=== PATIENT | female | born 1945 | race Caucasian/White ===

== ENCOUNTER 2021-08-11 14:54 | Outpatient (CLI) | payer MEDICARE, BC, SELFPAY ==
[2021-08-11 15:29] VITALS: BP 123/72; PULSE 68; RESP 20; O2SAT 96
--- NOTE | 2021-08-11 15:30 | DI.RAD_ITS ---
Exam(s) XR PAIN CLINIC LUMBAR SP 2V EXAM: XR PAIN CLINIC LUMBAR SP 2V CLINICAL HISTORY: dx: Lumbar spondylosis. TECHNIQUE: Fluoroscopy was provided for the referring physician for guidance with performing pain cl inic injection procedure. COMPARISON: No exams were available for comparison FINDINGS: Please see procedure note for details. Fluoro time: 40.9 seconds RADIATION DOSE DELIVERED: Javierr= 7.13 mGy
[2021-08-11] MEDS: Bupivacaine 0.5% Pres-Free 10 ML VIAL IJ (16:12)
[2021-08-11 16:30] VITALS: BP 141/68; PULSE 79; RESP 19; O2SAT 96
--- NOTE | 2021-08-17 05:54 | PDOC.PAIN_ITS ---
Pain Clinic Procedure Note Procedure Note Procedure Note: Lumbar/Sacral Medial Branch Blocks MICHAEL REYNOSO has been referred to the [facility] for lumbar/sacral medial branch blocks. COMMENTS: She was previously evaluated in our clinic. No contrast is being used secondary to an international shortage. Her pre-procedure pain VAS level to the low back was 9/10. Patient was interviewed and the medical record reviewed. There were no medical, pharmacologic, radiographic or other structural contraindications to attempting fluoroscopically guided local anesthetic lumbar/sacral medial branch blocks. Risks and expected side effects as well as potential benefit of the procedure we re reviewed and voiced concerns addressed. The printed consent form was signed and witnessed. Standard time-out procedure was performed. Patient was placed in the prone position on the fluoroscopy table and automated blood pressure cuff and pulse oximeter applied. The skin entry points for approaching the anatomic target points of the segmental medial branches of bilateral T11-L1 were identified with anfluoroscopy and marked. Following thorough Chlorhexadine preparation of the skin and draping and 1% lidocaine infiltration of the skin entry points and subcutaneous tissues, a 25 gauge 3.5 spinal needle was placed under fluoroscopic guidance down on to the target point for each respective segmental medial branch.Position was confirmed in A/P, oblique and lateral views. At this point I injected 0.5ml of 0.5% Bupivacaine at each segmental sensory nerve. Vital signs were stable throughout the procedure and were as recorded in the docflowsheet by the nursing staff. Follow up plans and appointments were discussed and was instructed to keep careful note of how the usual pain was modified by these injections. Specifically was asked to keep a pain diary for the next 24 hours using a numeric pain scale of 0-10 and report these results at the follow-up visit. Post procedure instruction was given as documented in the nursing documentation and having met discharge criteria. Patient was discharged from the [facility]. Based on the medial branches blocked today, if the patient has adequate relief and we are able to proceed to radiofrequency ablation, the treatment should result in the denervation of the bilateral T12-L1 and L1-L2 FACET JOINTS. We would expect to denervate a total of 4 facets during the radiofrequency ablation. COMMENTS: Post-procedure pain VAS was 0/10. Adolfo Mahoney DO, MPH [facility]-Pain Management [facility] CC: Isabella Horowitz
== END 2021-08-11 14:55 | disposition home or self-care (01) ==
LOC: PC 14:55
PROVIDERS: PCP Internal Medicine; Visit Provider Preventive Medicine Occupational Medicine
DX: M47.815 Spondylosis without myelopathy or radiculopathy, thoracolumbar region (principal)
CPT/HCPCS: 64493; 64494; 72100

== ENCOUNTER 2021-11-03 14:14 | Outpatient (CLI) | payer MEDICARE, BC, SELFPAY ==
--- NOTE | 2021-11-03 06:00 | DI.RAD_ITS ---
Exam(s) XR PAIN CLINIC LUMBAR SP 2V EXAM: XR PAIN CLINIC LUMBAR SP 2V CLINICAL HISTORY: Dx: Lumbar Spondylosis. TECHNIQUE: Fluoroscopy was provided for the referring physician for guidance with performing pain cl inic injection procedure. COMPARISON: No exams were available for comparison FINDINGS: Please see procedure note for details. Fluoro time 67.8 RADIATION DOSE DELIVERED: vic Herrera=13.12 mGy
[2021-11-03 14:23] VITALS: BP 147/80; PULSE 67; RESP 18; TEMP 36.7; O2SAT 97
--- NOTE | 2021-11-03 15:07 | PDOC.PAIN ---
Pain Clinic Procedure Note Procedure Note Procedure Note: Lumbar/Sacral Medial Branch Blocks Nelly Love has been referred to the [facility] for lumbar/sacral medial branch blocks. COMMENTS: She did very well with her first blocks. Pre-procedure pain VAS was 6/10. Dx: Lumbosacral spondylosis without myelopathy Patient was interviewed and the medical record reviewed. There were no medical, pharmacologic, radiographic or other structural contraindications to attempting fluoroscopically guided local anesthetic lumbar/sacral medial branch blocks. Risks and expected side effects as well as potential benefit of the procedure were reviewed and voiced concerns addressed. The printed consent form was signed and witnessed. Standard time-out procedure was performed. Patient was placed in the prone position on the fluoroscopy table and automated blood pressure cuff and pulse oximeter applied. The skin entry points for approaching the anatomic target points of the segmental medial branches of bilateral T11, T12 and L1 were identified with anfluoroscopy and marked. Following thorough Chlorhexadine preparation of the skin, a 25 gauge 3.5 spinal needle was placed under fluoroscopic guidance down on to the target point for each respective segmental medial branch.Position was confirmed in A/P, oblique and lateral views with 0.25ml of omnipaque 240. CAt this point 0.5ml of 2% Lidocaine was injected at each segmental sensory nerve. Vital signs were stable throughout the procedure and were as recorded in the docflowsheet by the nursing staff. Follow up plans and appointments were discussed and was instructed to keep careful note of how the usual pain was modified by these injections. Specifically was asked to keep a pain diary for the next 24 hours using a numeric pain scale of 0-10 and report these results at the follow-up visit. Post procedure instruction was given as documented in the nursing documentation and having met discharge criteria. Patient was discharged from the [facility]. Based on the medial branches blocked today, if the patient has adequate relief and we are able to proceed to radiofrequency ablation, the treatment should result in the denervation of the bilateral T12-L1 and L1-L2 FACET JOINTS. We would expect to denervate a total of 4 facets during the radiofrequency ablation. COMMENTS: Post-procedure pain VAS was 0/10. Adolfo Mahoney DO, MPH [facility]-Pain Management [facility] CC: Isabella Horowitz
[2021-11-03] MEDS: Lidocaine 2% Pres-Free 5 ML VIAL IJ (15:19)
[2021-11-03] MEDS: Omnipaque 240 MG/ML 50 ML BTL IJ (15:20)
== END 2021-11-03 14:15 | disposition home or self-care (01) ==
LOC: PC 14:16
PROVIDERS: PCP Internal Medicine; Visit Provider Preventive Medicine Occupational Medicine
DX: M47.817 Spondylosis without myelopathy or radiculopathy, lumbosacral region (principal); M54.50 Low back pain, unspecified
CPT/HCPCS: 64493; 64494; 72100; Q9967

== ENCOUNTER 2022-02-10 11:04 | Outpatient (CLI) | payer MEDICARE, BC, SELFPAY ==
[2022-02-10 11:22] VITALS: BP 155/79; PULSE 60; RESP 20; TEMP 36.8; O2SAT 98
[2022-02-10] MEDS: fentaNYL 100 MCG/2 ML VIAL IVP (12:11)
[2022-02-10] MEDS: Midazolam 2 MG/2 ML VIAL IVP (12:21)
[2022-02-10] MEDS: Lactated Ringers 500 ML 80 ML IV (12:48)
[2022-02-10 12:50] VITALS: BP 171/87; PULSE 71; RESP 17; O2SAT 100
--- NOTE | 2022-02-10 12:50 | DI.RAD_ITS ---
Exam(s) XR PAIN CLINIC LUMBAR SP 2V EXAM: XR PAIN CLINIC LUMBAR SP 2V CLINICAL HISTORY: Dx: Lumbar Spondylosis TECHNIQUE: 2D and realtime digital imaging was performed. CONTRAST MATERIAL: Refer to procedure report. COMPARISON: No exams were available for comparison FINDINGS: Fluoroscopy was provided for Dr. Mahoney during the performance of a lumbar radiofrequency ablation. P lease refer to the procedure report for complete details. Ka,r=14.8 mGy IMPRESSION:
--- NOTE | 2022-02-10 13:04 | PDOC.PAIN ---
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 Nelly Love was brought into the fluoroscopy suite and positioned into the prone position on the fluoroscopy table and allowed to adjust to a position of comfort. A grounding pad was placed on the left thigh. The lumbar region was widely prepped with a chloraprep solution, allowed to air dry and draped in standard sterile surgical fashion. Local anesthesia was provided by 3 mL of 2% Lidocaine delivered with a 25g needle. A 17g 100 mm radiofrequency introducer needle was placed to the planned anatomic targets guided with intermittent fluoroscopy with a perpendicular approach to terminally place at the junction of the superior articular process and the transverse process of the bilateral T12, L1 and L2. The stylets were removed and radiofrequency probes with a 4mm active tip were then inserted. Needle tip position of the probes was verified in the AP, oblique, and lateral views. At each site, the medial branch nerve was stimulated at 2 Hz to a maximum 1-2 volts determined to finalize safe needle and electrode placement. The patient was awake and responsive during this portion of the procedure. Each target was anesthetized with 1-2 mL of 2% Lidocaine for anesthesia for lesioning and then each target was lesioned at 80 degrees Celsius for 2 minutes and 30 seconds. Tissue impedences were noted to be between 250 and 500 Ohms. I then injected 1/3 cc of Depomedrol (40 mg/cc) followed by 1 cc of 2% Lidocaine to each site. Electrodes and needles were then removed and bandages placed over the needle placement sites, the patient then returned to the supine position on a stretcher and transported to the recovery room without hemodynamic, neurologic, or allergic reactions. Fluoroscopic images were printed for hard copy recording and digitally archived. POST PROCEDURE EVALUATION: IMPRESSION: 1. Summary of procedure. Medication given is documented in the MAR. 2. The patient will be contacted in 1-3 weeks 3. Estimated Blood Loss: <5 mls 4. Fluoroscopy time: Documented in the EMR. Follow up plans and appointments were discussed with the Nelly . Post procedure instruction was given as documented in nursing documentation and having met discharge criteria, Nelly was discharged from the Pain Management Center. COMMENTS: No apparent complications. Post-procedure pain: VAS= 0/10. Adolfo Mahoney DO, MPH [facility]-Pain Management [facility]
[2022-02-10] MEDS: Bupivacaine 0.5% Pres-Free 10 ML VIAL IJ (13:22)
[2022-02-10] MEDS: Lidocaine 2% Pres-Free 5 ML VIAL IJ (13:22)
[2022-02-10] MEDS: methylPREDNISolone ACETATE 40 MG/ML VIAL IJ (13:22)
== END 2022-02-10 11:05 | disposition home or self-care (01) ==
LOC: PC 11:04
PROVIDERS: PCP Internal Medicine; Visit Provider Preventive Medicine Occupational Medicine
DX: M54.89 Other dorsalgia (principal); M47.815 Spondylosis without myelopathy or radiculopathy, thoracolumbar region
CPT/HCPCS: 64635; 64636; 72100; J1030; J2250; J3010